=== PATIENT | female | born 1955 | race Caucasian/White ===

== ENCOUNTER → 2017-02-25 | Outpatient (CLI) | payer OTHER ==
[~2017-02-25] VITALS: Ht 157.5 cm; Wt 76.2 kg
[~2017-02-25] MED LIST: DUONEB 2.5-0.5 M3 ML INH; ENOXAPARIN30 MG/0.1 SUBQ; LASIX 40 MG TAB40 M2 PO; LEVOTHYROXIN0.075 MG PO; PROTONIX40 M1 PO; TUMS PO; VITAMIN B-12500 MCG PO
[2017-02-25 08:29] VITALS: BP 110/48
[2017-02-25 10:22] VITALS: BP 165/71
== END ==
LOC: SPEC 08:16
DX: Z46.59 Encounter for fitting and adjustment of other gastrointestinal appliance and device (principal); Z45.2 Encounter for adjustment and management of vascular access device; K21.9 Gastro-esophageal reflux disease without esophagitis